=== PATIENT | female | born 1940 | race Hispanic/Latino ===

== ENCOUNTER 2016-08-18 08:00 | Emergency (ER) | payer MEDICARE, MEDICAID ==
[~2016-08-18] VITALS: Ht 156.2 cm; Wt 63.2 kg
[~2016-08-18 08:00] MED LIST: ASPI81TA3 PO; ATOR40TA69 PO; CITA10TA9 PO; CLOP75TA28 PO; ISOS60TA2 PO; LATA2.5D6 BOTH_EYES; METO-272 PO; METO25TA6 PO; NITR0.4T SL; PHO667 PO; TRAM50TA2 PO
[2016-08-18 08:06] VITALS: BP 189/71; PULSE 72; RESP 16; O2SAT 99
[2016-08-18 08:55] VITALS: BP 159/57; PULSE 71; RESP 12; O2SAT 100
--- NOTE | 2016-08-18 09:09 | ED.REPORT ---
HPI-General Illness Date of Service Aug 18, 2016 ED Provider: Carroll Aguilar MD Pt is a 76 y/o female w/ a hx of CAD s/p CABG x2, DM, HTN, ESRD on dialysis ( Tues, Th, Sat), CHF, hyperlipidemia,presenting to the ED with family c/o SOB onset 0700 today. She was lying in bed about to get up and she felt sudden onset SOB with associated lightheadedness, generalized weakness, and left sided neck pain. All her symptoms last about 30 minutes and are now resolved. She denies spinning sensation dizziness, focal numbness or weakness, fever, chills, cough, chest pain, N/V/D. She denies new medications. Nursing Notes Stated Complaint: TROUBLE BREATHING/NECK PAIN Chief Complaint: General Complaint Nursing Notes Reviewed: Yes Allergies: Coded Allergies: amoxicillin (Verified Allergy, Unknown, Swollen lips and sob, 05/31/16) Pt was placed on Clarithromycin and Amoxicillin and she is having a reaction to one of them. Not sure which one. clarithromycin (Verified Allergy, Unknown, swollen lips, sob, 05/31/16) pt was put on clarithromycin and amoxicillin and she is having a reaction to one of them. Not sure which one. Scheduled Aspirin Chew (Aspirin Chew) 81 Mg Chew 81 MG PO DAILY Atorvastatin Calcium (Atorvastatin Calcium) 40 Mg Tablet 40 MG PO HS Calcium Acetate (Phoslo) 667 Mg Tablet 667 MG PO TIDWM Citalopram (Citalopram) 10 Mg Tablet 10 MG PO DAILY Clopidogrel (Clopidogrel) 75 Mg Tablet 75 MG PO DAILY Isosorbide MN ER (Isosorbide MN ER) 60 Mg Tab.er.24h 60 MG PO QAM Latanoprost (Latanoprost) 2.5 Ml Drops 1 DROP BOTH_EYES HS Metoprolol Succinate ER (Metoprolol Succinate ER) 50 Mg Tab.er.24h 50 MG PO DAILY Metoprolol Tartrate (Metoprolol Tartrate) 25 Mg Tablet 25 MG PO HS Scheduled PRN Nitroglycerin SL (Nitrostat) 0.4 Mg Tab.subl 0.4 MG SL Q5MIN PRN PRN For Chest Pain IF SBP > 90 Tramadol (Tramadol) 50 Mg Tablet 50 MG PO BID PRN PRN For Pain General Time Seen by MD: 09:04 Chief Complaint Other (SOB) Hx Obtained From: Patient Arrived By: Walk-in Sudden in Onset?: Yes Onset Occurred: 1 - 4 hours ago Symptom Duration: 16 - 30 minutes Location: : Neck Quality: Painful Severity: Current: No pain currently Severity: Maximum: Mild Similar Sx Previous: No Past Medical History Past Medical History Notes: PCP: Dr. Soto Director Of Acquisition Marketing: Dr. Nguyen Past Medical History Heart murmur-mild to moderate MR on echo 03/11/2014, suspected patent foramen ovale History of anemia of chronic disease + H Pylori on EGD 10/21/15 ESRD on Dialysis, followed by Dr. Weinstein. - caused by diabetes NSTEMI (November 2015) Reports: Congestive heart failure, Diabetes mellitus, Hyperlipidemia, Hypertension Reports: Depression Past Surgical History CABG x2 Cholecystectomy Discectomy Kidney biopsy Unilateral nephrectomy EGD and colonoscopy 10/21/15 Cardiac Stent Smoking History Never Smoker Social History Alcohol Use: Denies alcohol use Other Social History: Good social support, Local resident Ambulatory Status Independent Review of Systems Full Review of Systems Constitutional: Reports: Weakness - generalized, Denies: Chills, Fever Respiratory: Reports: Shortness of breath, Denies: Non-productive cough Cardiovascular: Denies: Chest pain, Edema GI: Denies: Abdominal pain, Diarrhea, Nausea, Vomiting Musculoskeletal: Reports: Neck pain Neurologic: Reports: Lightheaded, Denies: Bladder dysfunction, Bowel dysfunction, Change LOC, Confusion, Dizziness, Headache, Numbness, Slurred speech, Spinning sensation, Syncope, Unable to speak, Vision change Complete sys rev & neg: except as marked. Physical Exam Vital Signs Vital Signs Date Time Temp Pulse Resp B/P Pulse Ox O2 Delivery O2 Flow Rate FiO2 08/18/16 08:55 36.8 71 12 159/57 100 08/18/16 08:55 36.8 71 12 159/57 100 Room Air 08/18/16 08:06 36.1 72 16 189/71 99 Room Air Initial VS: Reviewed, Vital signs abnormal Head / Eyes: Atraumatic, Normocephalic, PERRL Neck: Supple, Non-tender, Full range of motion Cardiovascular: Regular rate & rhythm, Heart sounds normal, Intact distal pulses Abdomen / GI: Soft, Non-tender, No guarding, No rebound, No distention Extremities: Vascular intact, Neuro intact, No swelling, No tenderness Skin: Warm, Dry, No cyanosis Psychiatric: Mood/affect normal, Behavior normal, Normal thought content General/Constitutional: Awake, Alert, No acute distress, Well appearing, Cooperative, Not toxic appearing ENT: Atraumatic, Airway patent, Pharynx NL Mouth: Positive: Mucous membranes dry Respiratory / Chest: Atraumatic, Breath sounds NL, Breath sounds = bilat, No respiratory distress, No rales, No rhonchi, No wheezing, No retractions, No stridor, No chest tenderness, No chest wall deformity, No crepitus Well healed sternotomy scar Upper Extremities Upper Extremity / MS: Atraumatic, Full range of motion, No swelling, Non-tender , No erythema, No deformity, Neurologic intact, Vascular intact Dialysis fistula present right upper arm. Good palpable thrill. No redness or warmth. Neurologic: Oriented X3, Speech NL, No motor deficits, No sensory deficits, CN II - XII intact, Memory NL No pronator drift Interpretation & Diagnostics Lab Results Interpretation Result Diagram: 08/18/16 0940 08/18/16 0940 Test 08/18/16 09:40 08/18/16 09:49 08/18/16 12:00 White Blood Count 8.8th/mm3 (3.8-10.1) Red Blood Count 4.02mil/mm3 (3.90-5.20) Hemoglobin 12.7g/dL (12.0-15.6) Hematocrit 39.2% (35.0-46.0) Mean Corpuscular Volume 97.5fL (81-100) Mean Corpuscular Hemoglobin 31.6pg (27.0-35.0) Mean Corpuscular Hemoglobin Concent 32.4% (32.0-37.0) Red Cell Distribution Width 12.3% (12.3-15.4) Platelet Count 148bil/L (150-400) Neutrophils (%) (Auto) 73.6% (40-74) Lymphocytes (%) (Auto) 16.5% (14-46) Monocytes (%) (Auto) 7.2% (4-12) Eosinophils (%) (Auto) 2.4% (0-5) Basophils (%) (Auto) 0.2% (0-3) Prothrombin Time 9.6sec (8.1-12.5) Prothromb Time International Ratio 0.90ratio Sodium Level 136mEq/L (134-144) Potassium Level 4.7mEq/L (3.5-5.2) Chloride Level 95mEq/L (97-108) Carbon Dioxide Level 25mmol/L (18-29) Blood Urea Nitrogen 52mg/dL (8-27) Creatinine 3.61mg/dL (0.57-1.00) Estimat Glomerular Filtration Rate 18mL/min (>59) Glucose Level 99mg/dL (60-99) Calcium Level 8.8mg/dL (8.5-10.1) Magnesium Level 2.4mg/dL (1.6-2.6) Total Bilirubin 0.4mg/dL (0.0-1.2) Aspartate Amino Transf (AST/SGOT) 27U/L (0-50) Alanine Aminotransferase (ALT/SGPT) 23U/L (0-32) Alkaline Phosphatase 88U/L (25-165) Troponin T 0.021ug/L (0.0-0.011) Pro-B-Type Natriuretic Peptide 2115pg/mL (0-738) Total Protein 7.9g/dL (6.4-8.4) Albumin 4.2g/dL (3.4-5.0) Hold Patel Top Tube Received (Received) ECG Interpretation ECG Interpretation: Sinus rhythm rate [address] segment changes Compared to prior 04/24/16 - patient no longer has ST depression and biphasic T waves in anterolateral leads Time: 10:04 Interpreted by: ED physician Normal ECG Interpretation: Normal sinus rhythm, No acute ischemic changes, Normal axis, Normal intervals X-Ray Chest Interpretation Chest Xray Interpretation: IMPRESSION: No acute cardiopulmonary disease. Dictated by: Josr Cullen RRA Interpreted: Denia Cruz MD on 08/18/2016 at 10:22 Transcribed by: BRITTANY on 08/18/2016 at 10:22 View: Portable, 1 view Interpretation / Wet Read by: Interpret - Radiologist Re-Eval/Medical Decision Med Decision/Clinical Course Pt is a 76 y/o female w/ a hx of CAD s/p CABG x2, DM, HTN, ESRD on dialysis ( Tues, Thurs, Sat), CHF, hyperlipidemia,presenting to the ED with family c/o SOB onset 0700 today. She was lying in bed about to get up and she felt sudden onset SOB with associated lightheadedness, generalized weakness, and left sided neck pain. All her symptoms last about 30 minutes and are now resolved. Upon arrival she is afebrile with stable vital signs in no apparent distress. She has no ongoing active complaints. Meds given: Aspirin, 500 cc NS Labs notable as below: CBC: No leukocytosis, stable HCT of 32, Unremarkable CMP: BUN of 52 and creatinine of 3.61 which is baseline BNP of 2115 with no prior values, no significant electrolyte abnormalities Troponin: 0.021 up from prior of 0.011 CXR: Obtained, reviewed and interpreted by myself shows no evidence of acute infiltrates, effusions or pneumothorax. Cardiac and mediastinal silhouette normal. No bony or soft tissue abnormalities. Overall presentation somewhat vague. Initially she appeared slightly dehydrated and her symptoms sounded potentially orthostatic in nature. That being said she reported similar vague presentation with her previous AR. Therefore I administered aspirin and initiated cardiac workup. Her EKG was obtained as above and interpreted by myself. Of note previous ischemic changes appeared to have resolved today. She remained symptom-free. Of note, however her troponin was elevated at 0.021 which was increased from prior without any significant changes in her underlying renal function. This was somewhat concerning for acute coronary syndrome though her troponin was difficult to interpret given her underlying renal failure. For this reason, I opted to admit her for serial troponins and further workup. I considered other causes of her vague symptoms including pulmonary embolism however she has no recent major PE risk factors and no physical exam findings suggestive of DVT. X-ray is without pneumonia or pulmonary edema. The patient was discussed with the admitting hospitalist and transferred to the wing for further workup and management. Source of Hx: Old records Time of Eval: 11:17 Patient Status: Condition improved, Mild relief Re-Evaluation/Progress Note: Pt rechecked. Pt informed of need for admission due to abnormal lab results and need for further evaluation. Pt understands and agrees with plan for admission. All questions addressed. Counseled Regarding: Diagnosis, Lab results, Need for admission Discharge & Departure Primary Impression: Shortness of breath Additional Impressions: Elevated troponin History of coronary artery disease History of coronary artery bypass graft Lightheadedness Disposition: ADMITTED TO HOSPITAL Discharge Condition All VS Reviewed: Yes Condition: Stable Referrals: Yue Patrick DO (PCP) Scribe Attestation Portions of this note were transcribed by Billy Jay. I, Dr. Aguilar personally performed the history, physical exam and medical decision-making; I reviewed and confirmed the accuracy of the information in the transcribed note. Signed by Jory Holt, 08/18/16 - 1000 copies to: Yue Patrick Beck O MD Aug 18, 2016 09:09 BILLY JAY Aug 18, 2016 09:11
[2016-08-18] MEDS ORDERED: 0.9% Sodium Chloride 500 ML IV ONE (09:25)
[2016-08-18 09:50] LABS: BASOPHILS % (AUTO) 0.2 % (0-3); EOSINOPHILS % (AUTO) 2.4 % (0-5); MONOCYTES % (AUTO) 7.2 % (4-12); Mean Corpuscular Hemoglobin 31.6 pg (27.0-35.0); Mean Corpuscular Volume 97.5 fL (81-100); NEUTROPHILS % (AUTO) 73.6 % (40-74); Platelet Count 148 bil/L (150-400)
[2016-08-18 10:06] LABS: INR 0.9 ratio
[2016-08-18 10:16] LABS: TROPONIN T 0.021 ug/L (0.0-0.011)
--- NOTE | 2016-08-18 10:23 | DRSVH ---
PROCEDURE: X-RAY CHEST ONE VIEW, PORTABLE ([id number]) INDICATIONS: sob TECHNIQUE: One view of the chest was acquired. COMPARISON: None. FINDINGS: Surgical changes and devices: Post median sternotomy. Cholecystectomy clips Lungs and pleura: No pleural effusions or pneumothorax. Lungs are clear. Mediastinum: Mediastinal contours appear normal. Heart size is normal. Bones and chest wall: No suspicious bony lesions. Overlying soft tissues appear unremarkable. IMPRESSION: No acute cardiopulmonary disease. Dictated by: Josr Cullen [facility] Interpreted: Denia Cruz MD on 08/18/2016 at 10:22 Transcribed by: BRITTANY on 08/18/2016 at 10:22 Approved by: Denia Cruz MD, PhD on 08/18/2016 at 16:44
[2016-08-18 10:27] LABS: Magnesium 2.4 mg/dL (1.6-2.6)
[2016-08-18] MEDS ORDERED: Ondansetron 2 mg/mL 2 mL Inj IVPUSH PRN (11:15)
[2016-08-18] MEDS ORDERED: Alum-Mag Hydrox-Simeth 30 mL Suspension PO PRN (11:15)
[2016-08-18 12:34] LABS: APPEARANCE,URINE HAZY (CLEAR,HAZY); COLOR,URINE YELLOW (YELLOW); PH,URINE 5.5 (5.0-8.0)
[2016-08-18 12:35] LABS: OCCULT BLOOD,URINE TRACE (NEGATIVE); UROBILINOGEN,URINE NORMAL (NORMAL)
[2016-08-18 13:52] VITALS: BP 148/57; PULSE 75; RESP 20; O2SAT 98
[2016-12-28] MEDS ORDERED: ASPI-973 PO (14:37)
[2016-12-28] MEDS ORDERED: CALC667C9 PO (14:37)
[2016-12-28] MEDS ORDERED: OXYB5TAB10 PO (14:37)
[2016-12-28] MEDS ORDERED: AMLO-39 PO (14:37)
[2016-12-28] MEDS ORDERED: NITR0.4T SL (14:38)
== END 2016-08-18 13:53 | disposition home or self-care (01) ==
LOC: SED 08:00 → SOU 12:36 → UNDOADMIN 12:36 → SED 13:53
DX: R06.02 Shortness of breath (principal); R79.89 Other specified abnormal findings of blood chemistry; R42 Dizziness and giddiness; I25.10 Atherosclerotic heart disease of native coronary artery without angina pectoris; I50.9 Heart failure, unspecified; I25.2 Old myocardial infarction; E11.22 Type 2 diabetes mellitus with diabetic chronic kidney disease; I12.0 Hypertensive chronic kidney disease with stage 5 chronic kidney disease or end stage renal disease; N18.6 End stage renal disease; E78.5 Hyperlipidemia, unspecified; Z99.2 Dependence on renal dialysis; Z95.1 Presence of aortocoronary bypass graft; Z79.82 Long term (current) use of aspirin; Z88.1 Allergy status to other antibiotic agents
CPT/HCPCS: 36415; 71010; 80053; 81000; 82948; 83735; 83880; 84484; 85025; 85610; 87077; 87086; 87088; 87186; 93005; 96360; 99285; J7040

== ENCOUNTER 2017-01-01 09:47 | Day surgery (SDC) | payer MEDICARE, MEDICAID ==
[~2017-01-01] VITALS: Ht 156.2 cm; Wt 67.4 kg
[2017-01-01] VITALS (10 sets, daily range): BP systolic 99–154; BP diastolic 36–55; PULSE 61–73; RESP 9–16; O2SAT 92–100
[~2017-01-01 09:47] MED LIST changes: +0.9% Sodium Chloride 500 ML IV ONE; +AMLO-39 PO; +ASPI-973 PO; -ASPI81TA3 PO; +CALC667C9 PO; -CLOP75TA28 PO; +Clindamycin 900 mg/50 mL D5W IV ONE; -ISOS60TA2 PO; -METO-272 PO; -METO25TA6 PO; +OXYB5TAB10 PO; -PHO667 PO
[2017-01-01] MEDS ORDERED: EPHEDrine/NS 5 mg/mL 5 mL Syringe ONE (09:48)
[2017-01-01] MEDS ORDERED: Propofol 10,000 mCg/mL 20 mL Inj ONE (09:48)
[2017-01-01] MEDS ORDERED: fentaNYL-PF 50 mCg/mL 2 mL Inj ONE (09:48)
[2017-01-01] MEDS ORDERED: Phenylephrine/NS 100 mCg/mL 10 mL Syringe IVPUSH ONE (09:48)
[2017-01-01] MEDS ORDERED: Ondansetron 2 mg/mL 2 mL Inj ONE (09:48)
[2017-01-01] MEDS ORDERED: Dexamethasone 4 mg/mL Inj ONE (09:48)
[2017-01-01] MEDS ORDERED: METO25TA6 PO (10:44)
--- NOTE | 2017-01-01 10:56 | PCM.HPANE ---
Patient Data Date of Service: Jan 01, 2017 Surgeon Admitting Provider: Attending Provider:Rajan Velazquez MD Primary Care Physician:Yue Patrick DO Other Provider:Shmuel Ybarra Anesthesia Reason for Visit End Stage Renal Failure Ht/WT & BMI Height (Feet): 5 Height (Inches): 1.50 Weight (Kilograms): 67.4 Body Mass Index 27.00 Allergies Coded Allergies: amoxicillin (Verified Allergy, Severe, Swollen lips and sob,BLOATING, ) Pt was placed on Clarithromycin and Amoxicillin and she is having a reaction to one of them. Not sure which one. clarithromycin (Verified Allergy, Severe, swollen lips, sob, 12/28/16) pt was put on clarithromycin and amoxicillin and she is having a reaction to one of them. Not sure which one. clavulanic acid (Verified Allergy, Severe, LIP SWELLING,BLOATING, 12/28/16) Past Anesthesia History Anesthesia History: Denies:: Abnormal Airway, Anesthesia Reactions, Difficult Intubation, Fam Anesthesia Reaction, Fam Malignant Hypertherm, Malignant Hyperthermia Diabetes History Type of Diabetes: Type I Glycemic Control: Diet Controlled Current Bedside Blood Glucose: 86 MRSA MRSA: No Medications Blood Thinner: Aspirin Hypertension Medication: Yes (NORVASC) Home Meds Incl Beta Maliha: Yes Date Beta Maliha Taken: Jan 01, 2017 Time Beta Maliha Taken: 0800 Active Scripts Atorvastatin Calcium 40 Mg Zgzkhn56 Mg PO HS #30 TABLET Prov:Fermin Weaver MD 02/29/16 Reported Medications Metoprolol Tartrate 25 Mg Qlljcq43.5 Mg PO BID #45 01/01/17 Nitroglycerin SL (Nitrostat)0.4 Mg Tab.subl0.4 Mg SL Q5MIN PRN ANGINA #1 BOTTLE 12/28/16 Oxybutynin Chloride 5 Mg Tablet2.5 Mg PO HS PRN PRN Ref 0 12/28/16 Calcium Acetate 667 Mg Capsule2 Capsule PO TIDWM 12/28/16 Amlodipine (Norvasc)5 Mg Tablet5 Mg PO DAILY Ref 0 12/28/16 Aspirin 81 Mg Khqbdc725 Mg PO DAILY Ref 0 12/28/16 Citalopram 10 Mg Ktcgfa08 Mg PO HS 02/25/16 Latanoprost 2.5 Ml Drops1 Drop BOTH_EYES HS 07/11/15 Tramadol 50 Mg Stuulj84 Mg PO BID PRN For Pain 05/07/15 Discontinued Reported Medications Calcium Acetate (Phoslo)667 Mg [id number] Mg PO TIDWM 03/30/16 Clopidogrel 75 Mg Caacpa36 Mg PO DAILY Ref 0 01/07/16 Discontinued Scripts Isosorbide MN ER 60 Mg Tab.er.24h60 Mg PO QAM #30 TABLET Ref 1 Prov:Kathie Marquis DO 03/09/16 Metoprolol Succinate ER 50 Mg Tab.er.24h50 Mg PO DAILY #30 TABLET Ref 1 Prov:Kathie Marquis DO 03/09/16 Metoprolol Tartrate 25 Mg Omatnt78 Mg PO HS #30 TABLET Ref 1 Prov:Kathie Marquis DO 03/09/16 Aspirin Chew 81 Mg Chew81 Mg PO DAILY #30 Prov:Hema Rose Sharonda DO 11/23/15 Nitroglycerin SL (Nitrostat)0.4 Mg Tab.subl0.4 Mg SL Q5MIN PRN For Chest Pain IF SBP > 90 #30 Prov:Hema Rose DO 11/23/15 History History of ENT Problems?: Yes HEENT History: Positive for:: Cataracts Glaucoma Denies:: Abnormal Airway Difficult Intubation Dysphagia Hearing Problem Sinus Problem Denture Type: None Teeth Condition: Within Normal Limits Hx of Heart Problems?: Yes Cardiovascular History: Positive for:: Cardiac Surgery (S/P HEART CATH W/ STENTING LAD, 2 VESSEL CABG 04/2016) Chest Pain Congestive Heart Failure Coronary Artery Disease (NSTEMI X2) Heart Murmur (ECHO 09/2016 EF 60-65%) Hypertension (HYPERLIPIDEMIA) Valvular Heart Disease (MILD MR, MILD-MOD TR) Denies:: AICD Atrial Fibrillation Edema Irregular Heartbeat Pacemaker Hx of Respiratory Problem?: Yes Respiratory History: Positive for:: Dyspnea (JACOB/SOB) Denies:: Asthma COPD Chest Surgery Cough Hemoptysis Pneumonia Tuberculosis Use of C-PAP Machine Hx Neurologic Problems?: Yes Neurological History: Positive for:: Dizziness Headaches Denies:: Alzheimer's Disease CVA Dementia Parkinson's Disease Seizures Hx of GI Problems?: Yes Other GI Pertinent History: C/OF CONSTIPATION Hx of Problems?: Yes Genitourinary History: Positive for:: HX of Hemodialysis ( ESRF ( STAE 5)/DIALYSIS ACCESS=CURRENT PROBLEM ) Urinary Tract Infection (urinary retension with incomplete bladder emptying) HX of Peritoneal Dialysis: No Other Pertinent History: S/P RT A/V FISTULA (MALFUNCTIONING-UNSUCCESSFUL ANGIOPLASTY),RT IJ CATH,KIDNEY BX HX URINARY RETENTION Female Hx: Denies:: Currently (S/P LT OOPHORECTOMY) Skin History: Denies:: History Skin Disorders? Pressure Ulcers Hx Musculoskeletal Problems?: Yes Musculoskeletal History: Positive for:: Back Injury Osteoarthritis (FEET) Denies:: Joint Replacement Hx of Psycho/Social Problems?: Yes Psycho Social History: Positive for:: Hx Depression Denies:: Anxiety Hx Surgeries?: Yes (HEART CATH/STENT,CABG,RT IJ CATH,RT A/V FISTULA,BOWEN LT OOPHORECTOMY,SPINE) Hx Any Other Health Problems?: Yes Other History: Positive for:: Endocrine Disease Hospitalization (NSTEMI ) Denies:: Cancer Thyroid Disease History Blood Transfusions: Positive for:: Blood Transfusions Denies:: Blood Transfuse Reaction Bedside Blood Glucose: 86 Hx Alcohol Use: NoHx Substance Use: No Smoking Status: Never Smoker Have You Smoked inLast 12 mo: No Stop/Bang S-Snoring: Do You Snore Loudly: No T-Tired: feel tired, fatigued: Yes O-Obsered: Observed not breath: No P-Blood Pressure: treated: Yes B- Body Mass Index > 35 kg/m2: No A- Age over 50: Yes N- Neck Large Circumference: No G- Gender Male: No YOUNG Total Score: 3 Risk Assessment Category Category 1A: Patient has history of documented sleep apnea, and HAS NOT received any narcotic, sedative or anesthesia administration during this stay. Category 1B: Patient has history of documented sleep apnea, and HAS received any narcotic , sedative or anesthesia administration during this stay Category 2: Patient has SUSPECTED Obstructive Sleep Apnea, and HAS received any narcotic , sedative or anesthesia administration during this stay. Category 3: Patient has SUSPECTED Obstructive Sleep Apnea and HAS NOT received narcotic, sedative or anesthesia administration during this stay. Category 4: Outpatient in Procedural Areas with known sleep apnea or who screen positive for High Risk via the STOP/BANG questionnaire. Exam Exam Vital Signs Vital Signs Date Time Temp Pulse Resp B/P Pulse Ox O2 Delivery O2 Flow Rate FiO2 01/01/17 10:32 36.3 61 16 154/47 98 Room Air General Appearance: Alert, Oriented X3 HEENT/AIRWAY: MP 2 Lungs: Clear to Auscultation Heart: Exam Unremarkable, Regular Rate/Rhythm Meds/Labs/Diagnostics Admission Meds Current Medications Sodium Chloride (Normal Saline) 500 ml @ 10 mls/hr Q24H ONCE IV Last administered on 01/01/17t 10:30; Start 01/01/17 at 05:00; Stop 01/02/17 at 04:59 Bedside Blood Glucose: 86 Labs Test 01/01/17 10:52 Plan Impression Patient chart reviewed, patient interviewed and anesthestic plan with risks, benefits, and alternatives discussed, and informed consent obtained. NPO per Anesth. Guidelines: Yes ASA Physical Status: ASA3 Severe Disease Anesthetic Plan: MAC Bene/Risks/Altern/Consents: Yes HP Complete Prior to Induction: Yes Brent Merida MD Jan 01, 2017 10:56
[2017-01-01] MEDS ORDERED: Heparin 5,000 Unit/mL Inj IR ONE (12:35)
[2017-01-01] MEDS ORDERED: Lidocaine PF 1% 30 mL Inj INJ ONE (12:35)
[2017-01-01] MEDS ORDERED: Bupivacaine-MPF 0.5% 30 mL Inj INFILTRATE ONE (12:35)
[2017-01-01] MEDS ORDERED: 0.9% Sodium Chloride 500 ML IV ONE (12:56)
[2017-01-01] MEDS ORDERED: HYDROcodone-APAP 5-325 mg Tablet PO PRN (13:10)
--- NOTE | 2017-01-01 14:41 | PCM.ANEP1 ---
Post Anesthesia PACU Phase 1 Assessment Date of Service: Jan 01, 2017 Vital Signs Vital Signs Date Time Temp Pulse Resp B/P Pulse Ox O2 Delivery O2 Flow Rate FiO2 01/01/17 14:05 36.8 69 14 141/50 97 Room Air 01/01/17 13:45 69 9 139/47 96 Room Air 01/01/17 13:40 69 12 141/50 98 Room Air 01/01/17 13:35 36.6 70 10 139/55 100 Nasal Cannula 2 01/01/17 13:30 71 13 139/48 100 Nasal Cannula 2 01/01/17 13:28 71 10 140/51 100 Nasal Cannula 2 01/01/17 13:20 69 13 99/36 92 Room Air 01/01/17 13:15 70 12 104/45 93 Room Air 01/01/17 13:07 36.6 73 15 100/43 98 Room Air 01/01/17 10:32 36.3 61 16 154/47 98 Room Air Anesthetic Administered: MAC Level of Alertness: Awake, talking DAVIES's with Equal Strength: Yes Pain: No Nausea or Vomiting: No CV Function & Hydration Stable: Yes Airway Device: Oxygen Delivery: Simple Mask Lungs: Clear to Auscultation PACU Phase 2 Assessment Complications: No Patient Instructions Provided: N/A Brent Merida MD Jan 01, 2017 14:41
--- NOTE | 2017-01-01 23:54 | OP ---
[address] [id number] OPERATIVE REPORT PATIENT: LILIANE GARCIA : 1940 MR#: [id number] ADMIT: 01/01/2017 JOB ID: [id number] DATE OF SURGERY: 01/01/2017 PREOPERATIVE DIAGNOSIS(ES): 1. End-stage renal failure. 2. Failed right upper arm cephalic fistula. POSTOPERATIVE DIAGNOSIS(ES): 1. End-stage renal failure. 2. Failed right upper arm cephalic fistula. 3. Inadequate left upper arm basilic vein for fistula. OPERATION: Left upper arm exploration of basilic vein. SURGEON: Rajan Velazquez MD. COUNTER TOP ASSEMBLER: Pedrito Guerrier PA-C. INDICATION: The patient is a 76-year-old female who has a failed right upper arm cephalic venous fistula. She had a duplex exam that suggested a possible adequate basilic vein on the left upper arm and I elected to explore that, and if possible, do a left upper arm basilic based fistula, and if not, do a graft. FINDINGS: The left upper arm basilic vein at the antecubital fossa and also in the mid upper arm was way too small and inadequate to support a graft or to do a fistula. PROCEDURE: At the beginning and end of the operation, the SCOAP checklist was completed. An LMA anesthetic was induced. Using ChloraPrep, she was prepped and draped in the usual fashion. She received local anesthesia with 1% lidocaine and 0.5% bupivacaine. An antecubital incision was made in the left arm and with sharp dissection the antecubital fossa was explored. I found a diminutive cephalic vein, but I could not find a basilic vein. I explored laterally, and again, did not find an adequate basilic vein. I then made another incision midway up her left upper arm and once again explored for a fistula. I found the sensory forearm nerve but there was no adequate basilic vein associated with that. I then terminated the operation by closing the skin incisions with 4-0 Vicryl and then Dermabond. The estimated blood loss was less than 10 cc. There were no apparent complications. PLAN: She will return to my office for discussion of possibly using a right upper arm basilic vein or a graft to a preoperatively marked basilic or cephalic vein in the very proximal left upper arm. Critical assistance provided by Pedrito Guerrier, ARNAUD ZHANG
== END 2017-01-01 23:59 | disposition home or self-care (01) ==
LOC: SAS 09:47
PROVIDERS: ATTEND Surgery
DX: I12.0 Hypertensive chronic kidney disease with stage 5 chronic kidney disease or end stage renal disease (principal); N18.6 End stage renal disease; E11.9 Type 2 diabetes mellitus without complications; I25.10 Atherosclerotic heart disease of native coronary artery without angina pectoris; E78.5 Hyperlipidemia, unspecified; R33.9 Retention of urine, unspecified; I21.4 Non-ST elevation (NSTEMI) myocardial infarction; Z99.2 Dependence on renal dialysis; Z95.1 Presence of aortocoronary bypass graft; Z95.5 Presence of coronary angioplasty implant and graft; Z79.82 Long term (current) use of aspirin
CPT/HCPCS: 35761; 36415; 84132; J1100; J1644; J2250; J2370; J2405; J3010; J7030; J7040